=== PATIENT | male | born 1955 | race Caucasian/White ===

== ENCOUNTER 2022-02-26 19:49 | Inpatient (IN) | payer MEDICARE, OTHER ==
[2022-02-26] MEDS ORDERED: Albuterol/Ipratropium 3.0-0.5 MG/3 ML Neb Soln NEB ONE (19:55)
[2022-02-26] MEDS ORDERED: Sodium Chloride 0.9% 1,000 ML IV ONE (19:57)
[2022-02-26] MEDS ORDERED: cefTRIAXone 2 GM Vial IVPUSH ONE (19:57)
[2022-02-26] MEDS ORDERED: Acetaminophen 325 MG Tab PO ONE (20:22)
[2022-02-26 20:51] LABS: CHLORIDE,CL 100 mmol/L (98-107); SODIUM,NA 137 mmol/L (136-145)
[2022-02-26 20:52] LABS: ANION GAP 14.9 mmol/L (5-15); ESTIMATED GFR 82 mL/min (>=60)
[2022-02-26 21:14] LABS: CORONAVIRUS COVID-19 NAA NEGATIVE (NEGATIVE)
[2022-02-26] MEDS ORDERED: Ondansetron 4 MG Tab.DIS PO PRN (23:02)
[2022-02-26] MEDS ORDERED: Ondansetron 4 MG/2 ML SDV IV PRN (23:02)
[2022-02-26] MEDS ORDERED: Acetaminophen 325 MG Tab PO PRN (23:02)
[2022-02-26] MEDS: Sodium Chloride 0.9% 1,000 ML IV SCH (23:58)
[2022-02-27] MEDS: Doxycycline 100 MG Cap PO SCH ×3 (00:34→20:06)
[2022-02-27] MEDS: Albuterol/Ipratropium 3.0-0.5 MG/3 ML Neb Soln NEB PRN ×2 (00:35→08:07)
[2022-02-27 07:17] LABS: ANION GAP 12.8 mmol/L (5-15)
[2022-02-27] MEDS: Sodium Chloride 0.9% 1,000 ML IV SCH (07:34)
[2022-02-27] MEDS: Diltiazem 120 MG Cap.CD PO SCH (08:39)
[2022-02-27] MEDS: Ascorbic Acid 500 MG Tab PO SCH (08:40)
[2022-02-27] MEDS: Multivitamins with Iron/Calcium/Folic Acid/Minerals Tab PO SCH (08:40)
[2022-02-27] MEDS: Nicotine 21 MG/24 Hr Patch TRDERM SCH (08:41)
[2022-02-27] MEDS: Tamsulosin 0.4 MG Cap.ER PO SCH (08:44)
[2022-02-27] MEDS: methylPREDNISolone Sodium Succinate 40 MG/1 ML SDV IVPUSH SCH ×2 (10:42→20:05)
[2022-02-27] MEDS: Albuterol/Ipratropium 3.0-0.5 MG/3 ML Neb Soln NEB SCH ×4 (10:42→22:25)
[2022-02-27] MEDS: Budesonide 0.5 MG/2 ML Neb Susp NEB SCH ×2 (14:45→20:05)
[2022-02-27] MEDS: Warfarin 2.5 MG Tab PO SCH (19:26)
[2022-02-27] MEDS ORDERED: cefTRIAXone 2 GM Vial IV SCH (20:00)
[2022-02-27] MEDS ORDERED: Warfarin 2.5 MG Tab PO SCH (21:00)
[2022-02-28] MEDS: Albuterol/Ipratropium 3.0-0.5 MG/3 ML Neb Soln NEB SCH ×2 (03:39→06:02)
[2022-02-28] MEDS: Budesonide 0.5 MG/2 ML Neb Susp NEB SCH (06:02)
[2022-02-28] MEDS: Nicotine 21 MG/24 Hr Patch TRDERM SCH (08:14)
[2022-02-28] MEDS: Doxycycline 100 MG Cap PO SCH (08:14)
[2022-02-28] MEDS: Ascorbic Acid 500 MG Tab PO SCH (08:14)
[2022-02-28] MEDS: Multivitamins with Iron/Calcium/Folic Acid/Minerals Tab PO SCH (08:15)
[2022-02-28] MEDS: Diltiazem 120 MG Cap.CD PO SCH (08:15)
[2022-02-28] MEDS: Tamsulosin 0.4 MG Cap.ER PO SCH (08:15)
[2022-02-28] MEDS: Warfarin 2.5 MG Tab PO SCH ×2 (08:15→08:16)
[2022-02-28] MEDS: methylPREDNISolone Sodium Succinate 40 MG/1 ML SDV IVPUSH SCH (08:16)
[2022-03-02] MEDS ORDERED: Warfarin 5 MG Tab PO SCH (09:00)
== END 2022-02-28 13:34 | disposition home or self-care (01) | DRG 206 ==
LOC: VM.ED 19:49 → VM.MS 21:48
PROVIDERS: ADMIT Nurse Practitioner Family; ATTEND Nurse Practitioner Family
DX: R09.02 Hypoxemia (principal); N13.8 Other obstructive and reflux uropathy; D72.829 Elevated white blood cell count, unspecified; R50.9 Fever, unspecified; I10 Essential (primary) hypertension; N40.1 Benign prostatic hyperplasia with lower urinary tract symptoms; Z20.822 Contact with and (suspected) exposure to COVID-19; F17.210 Nicotine dependence, cigarettes, uncomplicated; N42.9 Disorder of prostate, unspecified; I48.91 Unspecified atrial fibrillation; J43.9 Emphysema, unspecified; M17.0 Bilateral primary osteoarthritis of knee; I71.9 Aortic aneurysm of unspecified site, without rupture; Z79.01 Long term (current) use of anticoagulants; F17.200 Nicotine dependence, unspecified, uncomplicated; Z79.899 Other long term (current) drug therapy
CPT/HCPCS: 0240U; 36415; 71046; 71250; 80053; 81001; 83605; 83880; 84145; 84484; 85007; 85025; 85027; 85610; 86140; 87040; 87086; 87476; 87798; 94640; 94760; 96361; 96374; 99284; 99285-25; A9270-GY; J0696; J2920; J7030; J7620-GY